=== PATIENT | female | born 1935 | race Two or more races ===

== ENCOUNTER 2021-06-22 11:25 | Inpatient (IN) | payer MEDICARE, OTHER ==
[~2021-06-22] VITALS: Ht 152.4 cm; Wt 78.1 kg
[2021-06-22 12:25] LABS: Basophils # (auto) 0 10 ^3/uL (0-0.2); Basophils % (auto) 0.3 % (0.0-2.0); Eosinophils # (auto) 0 10 ^3/uL (0-0.8); Eosinophils % (auto) 0.1 % (0.0-7.0); Hematocrit 37.8 % (36.0-46.0); Hemoglobin 12.9 g/dL (12.2-16.2); Lymphocytes # (auto) 0.6 10 ^3/uL (0.4-5.4); Lymphocytes % (auto) 7.5 % (10.0-50.0); Mean Corpuscular Hemoglobin 28.2 pg (28.0-32.0); Mean Corpuscular Hgb Conc. 34.1 g/dL (32.0-36.0); Mean Corpuscular Volume 82.6 fL (80.0-100.0); Monocytes # (auto) 1.3 10 ^3/uL (0-1.3); Monocytes % (auto) 15.2 % (0.0-12.0); Neutrophils # (auto) 6.5 10 ^3/uL (1.6-8.6); Neutrophils % (auto) 76.9 % (37.0-80.0); Red Blood Cells 4.57 10^6/uL (4.0-5.20); Red Cell Distribution Width 15.1 % (11.8-14.3); White Blood Cell 8.4 10^3/uL (4.4-10.8)
[2021-06-22 12:55] LABS: Albumin 2.9 g/dL (3.4-5.0); Calcium 8.6 mg/dL (8.5-10.1); Potassium 3.7 mmol/L (3.5-5.1)
[2021-06-22 12:58] LABS: BUN/Creatinine Ratio 30.8; Bilirubin, Total 0.9 mg/dL (0.2-1.0)
[2021-06-22] MEDS ORDERED: NITROGLYCERIN 0.4 MG SL TAB SL PRN ×2 (17:30→18:45)
[2021-06-22] MEDS ORDERED: MORPHINE SULFATE INJECTION 2 MG/ML SYRG IV PRN ×3 (17:30→18:45)
[2021-06-22] MEDS ORDERED: LORazepam 0.5 MG TAB PO PRN (18:45)
[2021-06-22] MEDS ORDERED: VANCOMYCIN PER PHARMACY 0 MG IV SCH (18:45)
[2021-06-22] MEDS ORDERED: ONDANSETRON HCL 4 MG/2 ML VIAL IV PRN (18:45)
[2021-06-22] MEDS ORDERED: DOCUSATE SOD 100 MG CAP PO PRN (18:45)
[2021-06-22] MEDS ORDERED: ALUM & MAG HYDROX-SIMETH LIQ(MAALOX) 30 ML PO PRN (18:45)
[2021-06-22] MEDS ORDERED: hydrALAZINE HCL 20 MG/ML VL IV PRN (19:15)
[2021-06-22] MEDS ORDERED: FUROSEMIDE 20 MG/2 ML VIAL IV ONE (20:30)
[2021-06-22] MEDS ORDERED: CEFTRIAXONE SODIUM 2 GM in D5W 5% 50 ML IV ONE (20:30)
[2021-06-22] MEDS ORDERED: ISOSORBIDE MONONITRATE ER 60 MG TAB PO ONE (20:30)
[2021-06-22] MEDS ORDERED: METOPROLOL SUCCINATE XL 50 MG TAB PO ONE (20:30)
[2021-06-22] MEDS ORDERED: VANCOMYCIN 1GM/250ML 250 ML IV ONE (21:30)
[2021-06-22] MEDS ORDERED: cefTRIAXone 1GM/50ML D5W 0 ML IV ONE (21:47)
[2021-06-22] MEDS ORDERED: cefTRIAXone SOD 1,000 MG VL ONE (21:48)
[2021-06-22] MEDS: SODIUM CHLORIDE 0.9% 1,000 ML IV SCH (22:00)
[2021-06-23 05:00] VITALS: BP 128/58
[2021-06-23] MEDS ORDERED: POTA10TA51 PO (05:54)
[2021-06-23] MEDS ORDERED: BUPR150T8 PO (05:54)
[2021-06-23] MEDS ORDERED: FURO1TAB33 PO (05:54)
[2021-06-23] MEDS ORDERED: CHOL20007 PO (05:54)
[2021-06-23] MEDS ORDERED: ATEN-60 PO (05:54)
[2021-06-23] MEDS ORDERED: CHLO25TA2 PO (05:54)
[2021-06-23 06:04] LABS: Basophils # (auto) 0 10 ^3/uL (0-0.2); Basophils % (auto) 0.4 % (0.0-2.0); Eosinophils # (auto) 0 10 ^3/uL (0-0.8); Eosinophils % (auto) 0.3 % (0.0-7.0); Hematocrit 35.2 % (36.0-46.0); Hemoglobin 11.9 g/dL (12.2-16.2); Lymphocytes # (auto) 0.7 10 ^3/uL (0.4-5.4); Lymphocytes % (auto) 10.7 % (10.0-50.0); Mean Corpuscular Hemoglobin 28.5 pg (28.0-32.0); Mean Corpuscular Hgb Conc. 33.9 g/dL (32.0-36.0); Monocytes # (auto) 1.1 10 ^3/uL (0-1.3); Monocytes % (auto) 15.8 % (0.0-12.0); Neutrophils # (auto) 5.1 10 ^3/uL (1.6-8.6); Neutrophils % (auto) 72.8 % (37.0-80.0); Nucleated Red Blood Cells % 0.2 %; Red Cell Distribution Width 15.3 % (11.8-14.3)
[2021-06-23] MEDS: FUROSEMIDE 20 MG/2 ML VIAL IV SCH ×2 (06:50→17:58)
[2021-06-23 08:11] LABS: Urine WBC None Seen /hpf (0 - 5)
[2021-06-23 08:45] LABS: Amphetamine Screen, Urine NEGATIVE (NEGATIVE); Barbiturate Scree,Urine NEGATIVE (NEGATIVE); Benzodiazephine Screen, Urine NEGATIVE (NEGATIVE); Cannabinoid Screen, Urine NEGATIVE (NEGATIVE); Cocaine Screen, Urine NEGATIVE (NEGATIVE); Opiate Scree,Urine NEGATIVE (NEGATIVE); Phencyclidine Screen, Urine NEGATIVE (NEGATIVE)
[2021-06-23 08:46] LABS: Urine Bacteria NONE SEEN /hpf (None Seen); Urine Blood Negative /uL (Negative); Urine Mucus FEW (None Seen); Urine Specific Gravity 1.017 (1.001-1.035)
[2021-06-23 09:00] VITALS: BP 100/43
[2021-06-23 09:21] LABS: Alcohol, Urine < 3.0 mg/dL (0-10)
[2021-06-23] MEDS: SODIUM CHLORIDE 0.9% 1,000 ML IV SCH (11:25)
[2021-06-23 12:58] VITALS: BP 125/70
[2021-06-23 17:08] VITALS: BP 118/54
[2021-06-23] MEDS: VANCOMYCIN 750mg/250ml 250 ML IV SCH (21:16)
[2021-06-23] MEDS: ACETAMINOPHEN 325 MG TAB PO PRN (21:17)
[2021-06-23 22:00] VITALS: BP 121/67
[2021-06-23] MEDS ORDERED: cefTRIAXone 1GM/50ML D5W 0 ML IV ONE (22:15)
[2021-06-23] MEDS: CEFTRIAXONE SODIUM 2 GM in D5W 5% 50 ML IV SCH (22:35)
[2021-06-23] MEDS: ISOSORBIDE MONONITRATE ER 60 MG TAB PO SCH (22:36)
[2021-06-23] MEDS: METOPROLOL SUCCINATE XL 50 MG TAB PO SCH (22:37)
[2021-06-24] MEDS: SODIUM CHLORIDE 0.9% 1,000 ML IV SCH ×2 (00:23→21:03)
[2021-06-24 05:00] VITALS: BP 103/55
[2021-06-24] MEDS: FUROSEMIDE 20 MG/2 ML VIAL IV SCH ×2 (05:42→18:14)
[2021-06-24 09:00] VITALS: BP 131/54
[2021-06-24 13:00] VITALS: BP 132/65
[2021-06-24] MEDS ORDERED: LIDOCAINE 2%HCL (LOCAL ANESTH.) INJ 20ML MDV ONE (15:04)
[2021-06-24 17:00] VITALS: BP 148/53
[2021-06-24] MEDS: ACETAMINOPHEN 325 MG TAB PO PRN (18:14)
[2021-06-24] MEDS: VANCOMYCIN 750mg/250ml 250 ML IV SCH (20:54)
[2021-06-24 22:00] VITALS: BP 160/80
[2021-06-24] MEDS: CEFTRIAXONE SODIUM 2 GM in D5W 5% 50 ML IV SCH (22:16)
[2021-06-24] MEDS: ISOSORBIDE MONONITRATE ER 60 MG TAB PO SCH (22:16)
[2021-06-24] MEDS: METOPROLOL SUCCINATE XL 50 MG TAB PO SCH (22:17)
[2021-06-25 05:00] VITALS: BP 125/55
[2021-06-25] MEDS: FUROSEMIDE 20 MG/2 ML VIAL IV SCH (05:54)
[2021-06-25 09:00] VITALS: BP 135/73
[2021-06-25 13:00] VITALS: BP 138/78
[2021-06-25 17:00] VITALS: BP 141/83
[2021-06-25] MEDS: buPROPion HCL 75 MG TAB PO SCH (18:10)
[2021-06-25 21:38] VITALS: BP 139/96
[2021-06-25] MEDS: VANCOMYCIN 750mg/250ml 250 ML IV SCH (21:53)
[2021-06-25] MEDS: ISOSORBIDE MONONITRATE ER 60 MG TAB PO SCH (23:10)
[2021-06-25] MEDS: METOPROLOL SUCCINATE XL 50 MG TAB PO SCH (23:11)
[2021-06-26] MEDS: buPROPion HCL 75 MG TAB PO SCH ×2 (05:13→18:52)
[2021-06-26 05:30] VITALS: BP 132/66
[2021-06-26 05:36] LABS: Basophils # (auto) 0 10 ^3/uL (0-0.2); Basophils % (auto) 0.6 % (0.0-2.0); Eosinophils # (auto) 0.1 10 ^3/uL (0-0.8); Eosinophils % (auto) 2.1 % (0.0-7.0); Hematocrit 33.4 % (36.0-46.0); Lymphocytes # (auto) 0.9 10 ^3/uL (0.4-5.4); Lymphocytes % (auto) 19.3 % (10.0-50.0); Mean Corpuscular Hemoglobin 27.5 pg (28.0-32.0); Mean Corpuscular Hgb Conc. 32.8 g/dL (32.0-36.0); Mean Corpuscular Volume 83.7 fL (80.0-100.0); Monocytes # (auto) 0.7 10 ^3/uL (0-1.3); Monocytes % (auto) 15.5 % (0.0-12.0); Neutrophils # (auto) 2.9 10 ^3/uL (1.6-8.6); Neutrophils % (auto) 62.5 % (37.0-80.0); Nucleated Red Blood Cells % 0.1 %; Red Blood Cells 3.99 10^6/uL (4.0-5.20); Red Cell Distribution Width 14.5 % (11.8-14.3); White Blood Cell 4.7 10^3/uL (4.4-10.8)
[2021-06-26 06:01] LABS: INR 1.05 (0.9-1.15); Partial Thromboplastin Time 31.7 sec (23.6-33.0)
[2021-06-26 06:05] LABS: Potassium 3.8 mmol/L (3.5-5.1)
[2021-06-26 09:00] VITALS: BP 131/68
[2021-06-26] MEDS ORDERED: CLINDAMYCIN 600MG IV 50 ML IV ONE (10:35)
[2021-06-26] MEDS ORDERED: fentaNYL CITRATE 100 MCG/2 ML VL ONE (10:42)
[2021-06-26] MEDS ORDERED: LIDOCAINE W/ EPINEPHRINE 2% INJ 20ML VIAL ONE ×2 (10:53→10:55)
[2021-06-26] MEDS ORDERED: BUPIVACAINE HCL 50 ML ONE (10:54)
[2021-06-26] MEDS ORDERED: PROPOFOL 10 MG/ML 20 ML IV ONE (11:34)
[2021-06-26] MEDS ORDERED: ePHEDrine SULFATE 50 MG/ML AMP ONE (11:35)
[2021-06-26] MEDS: VANCOMYCIN 750mg/250ml 250 ML IV SCH ×2 (12:19→22:40)
[2021-06-26 13:00] VITALS: BP 123/63
[2021-06-26 17:00] VITALS: BP 139/80
[2021-06-26] MEDS: HYDROcodone-ACET 5/325MG TAB PO PRN (17:34)
[2021-06-26 22:00] VITALS: BP 156/88
[2021-06-26] MEDS: ISOSORBIDE MONONITRATE ER 60 MG TAB PO SCH (22:41)
[2021-06-26] MEDS: METOPROLOL SUCCINATE XL 50 MG TAB PO SCH (22:42)
[2021-06-27] MEDS: HYDROcodone-ACET 5/325MG TAB PO PRN (00:15)
[2021-06-27 05:00] VITALS: BP 111/68
[2021-06-27] MEDS: buPROPion HCL 75 MG TAB PO SCH ×2 (07:29→19:35)
[2021-06-27] MEDS: ACETAMINOPHEN 325 MG TAB PO PRN ×2 (07:30→19:01)
[2021-06-27] MEDS: VANCOMYCIN 750mg/250ml 250 ML IV SCH ×2 (09:18→21:38)
[2021-06-27] MEDS: PANTOPRAZOLE 40 MG TAB PO SCH (09:18)
[2021-06-27] MEDS: ENOXAPARIN SOD 40 MG/0.4 ML SYRINGE SC SCH (09:19)
[2021-06-27 09:27] VITALS: BP 111/59
[2021-06-27] MEDS: CEFTRIAXONE SODIUM 2 GM in D5W 5% 50 ML IV SCH (12:08)
[2021-06-27 16:00] VITALS: BP 146/81
[2021-06-27 22:00] VITALS: BP 117/70
[2021-06-27] MEDS: ISOSORBIDE MONONITRATE ER 60 MG TAB PO SCH (23:04)
[2021-06-27] MEDS: METOPROLOL SUCCINATE XL 50 MG TAB PO SCH (23:05)
[2021-06-28 05:00] VITALS: BP 135/79
[2021-06-28] MEDS: buPROPion HCL 75 MG TAB PO SCH ×2 (06:52→18:59)
[2021-06-28 08:00] VITALS: BP 131/65
[2021-06-28] MEDS: VANCOMYCIN 750mg/250ml 250 ML IV SCH ×2 (09:29→21:12)
[2021-06-28] MEDS: CEFTRIAXONE SODIUM 2 GM in D5W 5% 50 ML IV SCH (09:29)
[2021-06-28] MEDS: PANTOPRAZOLE 40 MG TAB PO SCH (09:30)
[2021-06-28] MEDS: ENOXAPARIN SOD 40 MG/0.4 ML SYRINGE SC SCH (09:30)
[2021-06-28 12:00] VITALS: BP 152/76
[2021-06-28 16:00] VITALS: BP 143/89
[2021-06-28 22:00] VITALS: BP 153/85
[2021-06-28] MEDS: ISOSORBIDE MONONITRATE ER 60 MG TAB PO SCH (22:23)
[2021-06-28] MEDS: METOPROLOL SUCCINATE XL 50 MG TAB PO SCH (22:24)
[2021-06-29 06:00] VITALS: BP 110/57
[2021-06-29] MEDS: buPROPion HCL 75 MG TAB PO SCH ×2 (06:46→17:40)
[2021-06-29] MEDS: VANCOMYCIN 750mg/250ml 250 ML IV SCH ×2 (10:09→20:54)
[2021-06-29] MEDS: ENOXAPARIN SOD 40 MG/0.4 ML SYRINGE SC SCH (10:10)
[2021-06-29] MEDS: PANTOPRAZOLE 40 MG TAB PO SCH (10:10)
[2021-06-29] MEDS: CEFTRIAXONE SODIUM 2 GM in D5W 5% 50 ML IV SCH (10:10)
[2021-06-29 10:25] VITALS: BP 147/86
[2021-06-29 13:00] VITALS: BP 139/81
[2021-06-29] MEDS: HYDROcodone-ACET 5/325MG TAB PO PRN (14:19)
[2021-06-29 17:06] VITALS: BP 109/65
[2021-06-29 22:00] VITALS: BP 124/74
[2021-06-29] MEDS: ISOSORBIDE MONONITRATE ER 60 MG TAB PO SCH (22:00)
[2021-06-29] MEDS: METOPROLOL SUCCINATE XL 50 MG TAB PO SCH (22:01)
[2021-06-30 05:00] VITALS: BP 119/50
[2021-06-30] MEDS: buPROPion HCL 75 MG TAB PO SCH ×2 (05:57→18:46)
[2021-06-30 09:00] VITALS: BP 142/67
[2021-06-30] MEDS: VANCOMYCIN 750mg/250ml 250 ML IV SCH (10:59)
[2021-06-30] MEDS: CEFTRIAXONE SODIUM 2 GM in D5W 5% 50 ML IV SCH (10:59)
[2021-06-30] MEDS: PANTOPRAZOLE 40 MG TAB PO SCH (11:00)
[2021-06-30] MEDS: ENOXAPARIN SOD 40 MG/0.4 ML SYRINGE SC SCH (11:00)
[2021-06-30 13:00] VITALS: BP 143/62
[2021-06-30 16:57] VITALS: BP 141/94
== END 2021-06-30 20:39 | disposition home health service (06) | DRG 507 ==
LOC: ER 11:25 → EDBD 11:25 → TELE 17:19 → TELE-WESTW 06-23 03:05
PROVIDERS: ADMIT Hospitalist; ATTEND Internal Medicine Nephrology
PROC: 0R9J3ZZ Drainage of Right Shoulder Joint, Percutaneous Approach (ICD-10-PCS; 2021-06-24)
PROC: 0R9 Upper Joints, Drainage (ICD-10-PCS; principal; 2021-06-26 10:40)
PROC: 05HF33Z Insertion of Infusion Device into Left Cephalic Vein, Percutaneous Approach (ICD-10-PCS; 2021-06-28)
PROC: B54NZZA Ultrasonography of Left Upper Extremity Veins, Guidance (ICD-10-PCS; 2021-06-28)
DX: M00.9 Pyogenic arthritis, unspecified (principal); E43 Unspecified severe protein-calorie malnutrition; M75.101 Unspecified rotator cuff tear or rupture of right shoulder, not specified as traumatic; S40.011A Contusion of right shoulder, initial encounter; M19.011 Primary osteoarthritis, right shoulder; M06.9 Rheumatoid arthritis, unspecified; E78.5 Hyperlipidemia, unspecified; E66.01 Morbid (severe) obesity due to excess calories; K44.9 Diaphragmatic hernia without obstruction or gangrene; I10 Essential (primary) hypertension; Z20.822 Contact with and (suspected) exposure to COVID-19; E11.9 Type 2 diabetes mellitus without complications; Z68.31 Body mass index [BMI] 31.0-31.9, adult; Z86.711 Personal history of pulmonary embolism; Z90.710 Acquired absence of both cervix and uterus; Z88.0 Allergy status to penicillin; Z90.49 Acquired absence of other specified parts of digestive tract; Z91.81 History of falling; I50.9 Heart failure, unspecified; I11.0 Hypertensive heart disease with heart failure
CPT/HCPCS: 36415; 71045; 73030; 73221; 74176; 76942; 80048; 80053; 80202; 80307; 81001; 82565; 83036; 83880; 84484; 85025; 85610; 85652; 85730; 86141; 86850; 86900; 86901; 87040; 87070; 87075; 87086; 87205; 87426; 89051; 93005; 96365; 96375; 97110; 97116; 97530; G0378; J0696; J2704; J3490; J7060

== ENCOUNTER 2023-05-15 11:06 | Inpatient (IN) | payer MEDICARE, OTHER ==
[~2023-05-15] VITALS: Ht 154.9 cm; Wt 74.2 kg
[~2023-05-15 11:06] MED LIST: ATEN-60 PO; BUPR150T8 PO; CHLO25TA2 PO; CHOL20007 PO; FURO1TAB33 PO; POTA10TA51 PO
[2023-05-15 11:53] LABS: Basophils # (auto) 0 10 ^3/uL (0-0.2); Basophils % (auto) 0.8 % (0.0-2.0); Eosinophils # (auto) 0 10 ^3/uL (0-0.8); Eosinophils % (auto) 0.9 % (0.0-7.0); Hematocrit 36.3 % (36.0-46.0); Hemoglobin 12.2 g/dL (12.2-16.2); Lymphocytes # (auto) 0.7 10 ^3/uL (0.4-5.4); Lymphocytes % (auto) 16.1 % (10.0-50.0); Mean Corpuscular Hemoglobin 29.1 pg (28.0-32.0); Mean Corpuscular Hgb Conc. 33.6 g/dL (32.0-36.0); Mean Corpuscular Volume 86.5 fL (80.0-100.0); Monocytes # (auto) 0.5 10 ^3/uL (0-1.3); Monocytes % (auto) 10.8 % (0.0-12.0); Neutrophils # (auto) 3.3 10 ^3/uL (1.6-8.6); Neutrophils % (auto) 71.4 % (37.0-80.0); Nucleated Red Blood Cells % 0.1 %; Red Cell Distribution Width 14.6 % (11.8-14.3); White Blood Cell 4.6 10^3/uL (4.4-10.8)
[2023-05-15 12:29] LABS: Alanine Aminotransferase 17 U/L (7-40); Albumin 3.6 g/dL (3.2-4.8); Alkaline Phosphatase 114 U/L (46-116); Anion Gap 4 (5-15); Aspartate Aminotransferase 18 U/L (13-40); BUN/Creatinine Ratio 21.6 (10.0-20.0); Bilirubin, Total 0.4 mg/dL (0.2-1.0); Blood Urea Nitrogen 22 mg/dL (9-23); Calcium 9.5 mg/dL (8.7-10.4); Carbon Dioxide 32 mmol/L (20-30); Chloride 103 mmol/L (98-107); Glucose 93 mg/dL (74-106); Potassium 3.5 mmol/L (3.5-5.1); Sodium 139 mmol/L (136-145); Total Protein 7.2 g/dL (5.7-8.2)
[2023-05-15] MEDS ORDERED: VANCOMYCIN 1GM/250ML 250 ML IV ONE (14:30)
[2023-05-15] MEDS ORDERED: TETANUS-DIPTH-ACEL PERTUSSIS 0.5ML SYR Tdap IM ONE (14:30)
[2023-05-15] MEDS ORDERED: DEXTROSE (50%) 50ML SYRG IV PRN (15:15)
[2023-05-15] MEDS ORDERED: ACETAMINOPHEN 325 MG TAB PO PRN (15:15)
[2023-05-15] MEDS ORDERED: FUROSEMIDE 20 MG/2 ML VIAL IV ONE (15:15)
[2023-05-15] MEDS ORDERED: ALBUTEROL SULF 2.5 MG/0.5ML(0.5%) NEB SOLN NEB PRN (15:30)
[2023-05-15 15:39] VITALS: BP 115/58; PULSE 77; RESP 18; TEMP 98.7; O2SAT 95
[2023-05-15] MEDS: InsuLIN REG 1unit/0.01ml Soln (100units/ml) SC SCH ×2 (17:00→22:00)
[2023-05-15 18:00] VITALS: PULSE 73; RESP 14; O2SAT 96
[2023-05-15] MEDS: ACCU-CHEK COMFORT CURVE STRIP VI SCH ×2 (18:11→22:09)
[2023-05-15] MEDS ORDERED: ONDANSETRON ODT 4 MG TAB PO PRN (22:15)
[2023-05-16] VITALS (8 sets, daily range): BP systolic 94–105; BP diastolic 47–61; PULSE 81–90; RESP 17–19; TEMP 97.5–98.3; O2SAT 93–99
[2023-05-16 06:50] LABS: Basophils # (auto) 0 10 ^3/uL (0-0.2); Basophils % (auto) 0.3 % (0.0-2.0); Eosinophils # (auto) 0 10 ^3/uL (0-0.8); Eosinophils % (auto) 0.6 % (0.0-7.0); Hematocrit 33.5 % (36.0-46.0); Hemoglobin 11.3 g/dL (12.2-16.2); Lymphocytes # (auto) 0.1 10 ^3/uL (0.4-5.4); Lymphocytes % (auto) 1.6 % (10.0-50.0); Mean Corpuscular Hemoglobin 29.3 pg (28.0-32.0); Mean Corpuscular Hgb Conc. 33.8 g/dL (32.0-36.0); Mean Corpuscular Volume 86.6 fL (80.0-100.0); Monocytes # (auto) 0.7 10 ^3/uL (0-1.3); Monocytes % (auto) 8.1 % (0.0-12.0); Neutrophils # (auto) 7.6 10 ^3/uL (1.6-8.6); Neutrophils % (auto) 89.4 % (37.0-80.0); Red Blood Cells 3.86 10^6/uL (4.0-5.20); Red Cell Distribution Width 14.5 % (11.8-14.3); White Blood Cell 8.5 10^3/uL (4.4-10.8)
[2023-05-16] MEDS: InsuLIN REG 1unit/0.01ml Soln (100units/ml) SC SCH ×4 (07:00→22:00)
[2023-05-16 07:02] LABS: Alanine Aminotransferase 17 U/L (7-40); Albumin 3.2 g/dL (3.2-4.8); Alkaline Phosphatase 98 U/L (46-116); Anion Gap 3 (5-15); Aspartate Aminotransferase 17 U/L (13-40); Blood Urea Nitrogen 22 mg/dL (9-23); Calcium 9.1 mg/dL (8.7-10.4); Carbon Dioxide 33 mmol/L (20-30); Chloride 103 mmol/L (98-107); Glucose 117 mg/dL (74-106); Potassium 3.9 mmol/L (3.5-5.1); Sodium 139 mmol/L (136-145); Total Protein 6.2 g/dL (5.7-8.2)
[2023-05-16] MEDS: ACCU-CHEK COMFORT CURVE STRIP VI SCH ×4 (07:05→22:20)
[2023-05-16 07:09] LABS: Bilirubin, Total 0.4 mg/dL (0.2-1.0)
[2023-05-16 07:12] LABS: INR 1.04 (0.9-1.15); Prothrombin Time 10.9 sec (9.3-11.8)
[2023-05-16] MEDS: ENOXAPARIN SOD 40 MG/0.4 ML SYRINGE SC SCH (10:58)
[2023-05-16] MEDS: CHOLECALCIFEROL (VITD3) 2,000 UNIT CAP/TAB PO SCH (10:59)
[2023-05-16] MEDS: FUROSEMIDE 20 MG/2 ML VIAL IV SCH (11:15)
[2023-05-16] MEDS: ATENOLOL 25 MG TAB PO SCH (11:16)
[2023-05-16] MEDS ORDERED: FLUT110A PO (16:50)
[2023-05-16] MEDS ORDERED: BUPR-239 PO (16:50)
[2023-05-16] MEDS ORDERED: BUPR100T16 PO (16:50)
[2023-05-16] MEDS ORDERED: ATEN25TA PO (16:50)
[2023-05-16] MEDS ORDERED: FURO40TA4 PO (16:50)
[2023-05-17] VITALS (8 sets, daily range): BP systolic 95–109; BP diastolic 50–70; PULSE 63–81; RESP 16–20; TEMP 97.3–98.3; O2SAT 96–99
[2023-05-17] MEDS: InsuLIN REG 1unit/0.01ml Soln (100units/ml) SC SCH ×4 (06:06→22:00)
[2023-05-17] MEDS: ACCU-CHEK COMFORT CURVE STRIP VI SCH ×4 (06:07→22:00)
[2023-05-17] MEDS: FUROSEMIDE 20 MG/2 ML VIAL IV SCH (10:11)
[2023-05-17] MEDS: CHOLECALCIFEROL (VITD3) 2,000 UNIT CAP/TAB PO SCH (10:12)
[2023-05-17] MEDS: ATENOLOL 25 MG TAB PO SCH (10:12)
[2023-05-17] MEDS: ENOXAPARIN SOD 40 MG/0.4 ML SYRINGE SC SCH (10:14)
[2023-05-18] VITALS (7 sets, daily range): BP systolic 99–106; BP diastolic 44–48; PULSE 63–75; RESP 16–21; TEMP 36.9; O2SAT 93–99
[2023-05-18] MEDS: InsuLIN REG 1unit/0.01ml Soln (100units/ml) SC SCH ×2 (05:29→11:30)
[2023-05-18] MEDS: ACCU-CHEK COMFORT CURVE STRIP VI SCH ×2 (05:31→11:30)
[2023-05-18] MEDS: FUROSEMIDE 20 MG/2 ML VIAL IV SCH (10:00)
[2023-05-18] MEDS: ATENOLOL 25 MG TAB PO SCH (10:09)
[2023-05-18] MEDS: CHOLECALCIFEROL (VITD3) 2,000 UNIT CAP/TAB PO SCH (10:09)
[2023-05-18] MEDS: ENOXAPARIN SOD 40 MG/0.4 ML SYRINGE SC SCH (10:10)
[2023-05-18] MEDS ORDERED: CLIN300C70 PO (11:35)
== END 2023-05-18 18:44 | disposition home or self-care (01) | DRG 603 ==
LOC: ER 11:06 → EDBD 11:06 → OVERFLOW 15:08 → CENTRAL 05-16 11:38
PROVIDERS: ADMIT Nurse Practitioner Family; ATTEND Internal Medicine
DX: L03.116 Cellulitis of left lower limb (principal); J96.10 Chronic respiratory failure, unspecified whether with hypoxia or hypercapnia; I50.32 Chronic diastolic (congestive) heart failure; S80.12XA Contusion of left lower leg, initial encounter; I11.0 Hypertensive heart disease with heart failure; J44.9 Chronic obstructive pulmonary disease, unspecified; M81.0 Age-related osteoporosis without current pathological fracture; E11.9 Type 2 diabetes mellitus without complications; X58.XXXA Exposure to other specified factors, initial encounter; Z88.0 Allergy status to penicillin; Z86.718 Personal history of other venous thrombosis and embolism; Z99.81 Dependence on supplemental oxygen; Z90.710 Acquired absence of both cervix and uterus; Z86.711 Personal history of pulmonary embolism; Z90.49 Acquired absence of other specified parts of digestive tract; Y93.89 Activity, other specified; Y92.89 Other specified places as the place of occurrence of the external cause; Y99.8 Other external cause status
CPT/HCPCS: 36415; 73590; 80053; 82962; 83036; 83880; 85025; 85610; 87040; 90471; 90715; 93306; 93970; 96365; 96375; 97110; 97116; 97163; 97530; G0378; Q0162

== ENCOUNTER 2023-07-28 00:23 | Inpatient (IN) | payer MEDICARE, OTHER ==
[2023-07-28] VITALS (7 sets, daily range): BP systolic 109–118; BP diastolic 55–62; PULSE 57–83; RESP 17–20; TEMP 97.5–98.3; O2SAT 96–98
[~2023-07-28] VITALS: Ht 157.5 cm; Wt 67.7 kg
[~2023-07-28 00:23] MED LIST changes: +ATEN25TA PO; +BUPR-239 PO; +BUPR100T16 PO; +CLIN300C70 PO; +FLUT110A PO; +FURO40TA4 PO
[2023-07-28 01:29] LABS: Basophils # (auto) 0 10 ^3/uL (0-0.2); Basophils % (auto) 0.8 % (0.0-2.0); Eosinophils # (auto) 0.1 10 ^3/uL (0-0.8); Eosinophils % (auto) 1.9 % (0.0-7.0); Hematocrit 37.3 % (36.0-46.0); Hemoglobin 12.2 g/dL (12.2-16.2); Lymphocytes # (auto) 0.8 10 ^3/uL (0.4-5.4); Lymphocytes % (auto) 15.4 % (10.0-50.0); Mean Corpuscular Hemoglobin 28.4 pg (28.0-32.0); Mean Corpuscular Hgb Conc. 32.6 g/dL (32.0-36.0); Mean Corpuscular Volume 86.9 fL (80.0-100.0); Monocytes # (auto) 0.4 10 ^3/uL (0-1.3); Monocytes % (auto) 7.9 % (0.0-12.0); Neutrophils # (auto) 4.1 10 ^3/uL (1.6-8.6); Nucleated Red Blood Cells % 0.2 %; Red Blood Cells 4.29 10^6/uL (4.0-5.20); Red Cell Distribution Width 15.4 % (11.8-14.3); White Blood Cell 5.5 10^3/uL (4.4-10.8)
[2023-07-28 01:44] LABS: INR 1.23 (0.9-1.15); Partial Thromboplastin Time 33.4 SEC (24.5-34.5); Prothrombin Time 12.7 sec (9.3-11.8)
[2023-07-28 01:47] LABS: Alanine Aminotransferase 28 U/L (7-40); Albumin 3.3 g/dL (3.2-4.8); Alkaline Phosphatase 113 U/L (46-116); Anion Gap 6 (5-15); Aspartate Aminotransferase 31 U/L (13-40); BUN/Creatinine Ratio 27.3 (10.0-20.0); Blood Urea Nitrogen 35 mg/dL (9-23); Calcium 9.2 mg/dL (8.7-10.4); Carbon Dioxide 28 mmol/L (20-30); Chloride 107 mmol/L (98-107); Glucose 72 mg/dL (74-106); Magnesium 1.8 mg/dL (1.6-2.6); Potassium 3.6 mmol/L (3.5-5.1); Sodium 141 mmol/L (136-145); Total Protein 6.6 g/dL (5.7-8.2)
[2023-07-28 01:48] LABS: Bilirubin, Total 0.9 mg/dL (0.2-1.0)
[2023-07-28 01:56] LABS: Platelet Estimate Decreased
[2023-07-28 13:20] LABS: Urine Bacteria NONE SEEN /hpf (None Seen); Urine Blood Negative /uL (Negative); Urine Clarity Clear (Clear); Urine Color Yellow (Yellow); Urine Hyaline Cast FEW /lpf (0 - 2); Urine Protein, UAD TRACE (Negative); Urine Specific Gravity 1.021 (1.001-1.035); Urine Urobilinogen Normal (Negative); Urine WBC 10 /hpf (0 - 5); Urine pH 5.5 (5.0-8.0)
[2023-07-28] MEDS ORDERED: ACETAMINOPHEN 325 MG TAB PO PRN (13:30)
[2023-07-28] MEDS ORDERED: ONDANSETRON HCL 4 MG/2 ML VIAL IV PRN (13:30)
[2023-07-28] MEDS ORDERED: HYDROcodone-ACET 5/325MG TAB PO PRN (13:30)
[2023-07-28] MEDS ORDERED: MORPHINE SULFATE INJ 2 MG/ml SYRG IV PRN ×2 (13:30)
[2023-07-28] MEDS ORDERED: NITROGLYCERIN 0.4 MG SL TAB SL PRN (13:30)
[2023-07-28] MEDS ORDERED: HALOPERIDOL LACTATE 5 MG/ML INJ VIAL IM PRN (15:00)
[2023-07-28] MEDS: SERTRALINE HCL 50 MG TAB PO SCH (16:38)
[2023-07-28] MEDS: FUROSEMIDE 20 MG/2 ML VIAL IV SCH (16:39)
[2023-07-28] MEDS: ENOXAPARIN SOD 30 MG/0.3 ML SYRINGE SC SCH (16:39)
[2023-07-28] MEDS ORDERED: levoFLOXacin 750MG 150 ML IV ONE (17:00)
[2023-07-28] MEDS: OXYBUTYNIN CHL 5 MG TAB PO SCH ×2 (18:07→22:27)
[2023-07-28] MEDS ORDERED: CLINDAMYCIN HCL 150 MG CAP PO SCH (22:00)
[2023-07-28] MEDS: MELATONIN 5 MG TAB PO SCH (22:27)
[2023-07-29] VITALS (7 sets, daily range): BP systolic 96–129; BP diastolic 46–64; PULSE 51–71; RESP 15–22; TEMP 97.6–98.9; O2SAT 95–100
[2023-07-29 07:18] LABS: Basophils # (auto) 0 10 ^3/uL (0-0.2); Basophils % (auto) 1.1 % (0.0-2.0); Eosinophils # (auto) 0.1 10 ^3/uL (0-0.8); Eosinophils % (auto) 2.8 % (0.0-7.0); Hematocrit 34.1 % (36.0-46.0); Hemoglobin 11.1 g/dL (12.2-16.2); Lymphocytes # (auto) 0.8 10 ^3/uL (0.4-5.4); Lymphocytes % (auto) 20.3 % (10.0-50.0); Mean Corpuscular Hgb Conc. 32.5 g/dL (32.0-36.0); Mean Corpuscular Volume 86.1 fL (80.0-100.0); Monocytes # (auto) 0.5 10 ^3/uL (0-1.3); Neutrophils # (auto) 2.5 10 ^3/uL (1.6-8.6); Neutrophils % (auto) 63.8 % (37.0-80.0); Nucleated Red Blood Cells % 0.2 %; Red Blood Cells 3.96 10^6/uL (4.0-5.20); Red Cell Distribution Width 14.8 % (11.8-14.3); White Blood Cell 3.9 10^3/uL (4.4-10.8)
[2023-07-29 07:48] LABS: Chloride 104 mmol/L (98-107); Potassium 3.5 mmol/L (3.5-5.1); Sodium 143 mmol/L (136-145)
[2023-07-29 07:49] LABS: Anion Gap 7 (5-15); Carbon Dioxide 32 mmol/L (20-30)
[2023-07-29 07:54] LABS: BUN/Creatinine Ratio 27.2 (10.0-20.0); Blood Urea Nitrogen 34 mg/dL (9-23); Glucose 69 mg/dL (74-106)
[2023-07-29] MEDS: OXYBUTYNIN CHL 5 MG TAB PO SCH ×2 (10:00→21:24)
[2023-07-29] MEDS: ENOXAPARIN SOD 30 MG/0.3 ML SYRINGE SC SCH (10:00)
[2023-07-29] MEDS: SERTRALINE HCL 50 MG TAB PO SCH (10:00)
[2023-07-29] MEDS ORDERED: levoFLOXacin 750MG 150 ML IV SCH (10:00)
[2023-07-29] MEDS: FUROSEMIDE 20 MG/2 ML VIAL IV SCH (10:37)
[2023-07-29] MEDS: MELATONIN 5 MG TAB PO SCH (21:22)
[2023-07-30 05:00] VITALS: BP 109/51; PULSE 62; RESP 17; TEMP 98.7; O2SAT 93
[2023-07-30 09:00] VITALS: BP 112/68; PULSE 71; RESP 17; TEMP 97.3; O2SAT 96
[2023-07-30] MEDS: OXYBUTYNIN CHL 5 MG TAB PO SCH (09:19)
[2023-07-30] MEDS: SERTRALINE HCL 50 MG TAB PO SCH (09:19)
[2023-07-30] MEDS: ENOXAPARIN SOD 30 MG/0.3 ML SYRINGE SC SCH (09:20)
[2023-07-30] MEDS: FUROSEMIDE 20 MG/2 ML VIAL IV SCH (09:22)
[2023-07-30] MEDS ORDERED: CIPR250T3 PO (12:27)
[2023-07-30 13:00] VITALS: BP 108/55; PULSE 65; RESP 18; TEMP 97.2; O2SAT 95
[2023-07-30] MEDS ORDERED: Ensure HIGH Protein Chocolate 8oz Bottle PO SCH (18:00)
== END 2023-07-30 17:29 | disposition home health service (06) | DRG 291 ==
LOC: EDBD 00:23 → ER 00:23 → EDSEX 00:23 → OVERFLOW 13:20 → EAST 16:08
PROVIDERS: ADMIT Internal Medicine; ATTEND Internal Medicine
DX: I13.0 Hypertensive heart and chronic kidney disease with heart failure and stage 1 through stage 4 chronic kidney disease, or unspecified chronic kidney disease (principal); I50.33 Acute on chronic diastolic (congestive) heart failure; N17.0 Acute kidney failure with tubular necrosis; D61.818 Other pancytopenia; N39.0 Urinary tract infection, site not specified; E11.22 Type 2 diabetes mellitus with diabetic chronic kidney disease; E55.9 Vitamin D deficiency, unspecified; F32.A Depression, unspecified; F41.0 Panic disorder [episodic paroxysmal anxiety]; I27.20 Pulmonary hypertension, unspecified; J44.9 Chronic obstructive pulmonary disease, unspecified; R32 Unspecified urinary incontinence; F03.90 Unspecified dementia, unspecified severity, without behavioral disturbance, psychotic disturbance, mood disturbance, and anxiety; S81.802A Unspecified open wound, left lower leg, initial encounter; X58.XXXA Exposure to other specified factors, initial encounter; K44.9 Diaphragmatic hernia without obstruction or gangrene; N18.30 Chronic kidney disease, stage 3 unspecified; Z82.49 Family history of ischemic heart disease and other diseases of the circulatory system; Z86.711 Personal history of pulmonary embolism; Z88.0 Allergy status to penicillin; Z90.710 Acquired absence of both cervix and uterus; Y93.89 Activity, other specified; Y92.89 Other specified places as the place of occurrence of the external cause; Y99.8 Other external cause status
CPT/HCPCS: 36415; 71045; 71250; 73610; 73630; 80048; 80053; 81001; 82306; 82607; 83036; 83735; 83880; 84443; 84484; 85025; 85610; 85730; 87081; 87086; 93971; 96365; G0378; J1956

== ENCOUNTER 2024-06-24 22:28 | Emergency (ER) | payer MEDICARE ==
[~2024-06-24] VITALS: Ht 154.9 cm; Wt 40.9 kg
[~2024-06-24 22:28] MED LIST changes: +CIPR250T3 PO; +CLIN1CAP70 PO; -CLIN300C70 PO; +POTA-36 PO; -POTA10TA51 PO
--- NOTE | 2024-06-24 23:19 | ED.PDOC ---
History of Present Illness HPI Comments 89 y/o F, with a Hx of arthritis, CHF, CKF III, COPD, DM, HTN, PE, UTI's, thrombocytopenia, and current hiatal hernia, is BIBA for c/o constipation for 3 days. Per EMS report, patient is a bed-ridden resident of [facility] and reports being unable to defecate for the past few days. Vitals were stated to have been within normal limits on scene and en route. At time of evaluation, patient comments on Prune juice use, today, with no relief of constipation in addition to admitting to adult diaper use. Patient comments on no recent stress, injuries, sick contact, travel, spoiled food intake, or substance use/exposure. Patient denies having any abdominal pain, nausea, vomiting, urinary symptoms, fever, chills, or other associated symptoms or modifiers at this time. Chief Complaint: Constipation Time Seen by MD: 22:45 Primary Care Provider: MI Reviewed Notes: Nurses Notes, [employer] Consultant Notes, Medications, Allergies Allergies: Coded Allergies: Penicillins (Verified Allergy, Unknown, 06/22/21) Prednisone (Verified Allergy, Unknown, 06/24/24) Home Meds Active Scripts Ciprofloxacin Hcl (Ciprofloxacin Hcl) 250 Mg Tab, 1 TAB PO BID for 3 Days, #6 TAB Prov:MAGALY ISLAS MD 07/30/23 Clindamycin Hcl (Clindamycin Hcl) 300 Mg Cap, 1 CAP PO TID, #21 CAP Prov:FOZIA SMITH MD 05/18/23 Reported Medications Bupropion Hcl (Bupropion Hcl Sr) 200 Mg Tab, 1 TAB PO BID 05/16/23 Furosemide (Furosemide) 40 Mg Tab, 1 TAB PO BID 05/16/23 Fluticasone Propionate (FLOVENT HFA 110Mcg INH) 110 Mcg Ih, 2 PUFF PO 05/16/23 Atenolol (Atenolol) 25 Mg Tab, 1 TAB PO DAILY 05/16/23 Bupropion Hcl (Bupropion Hcl Er) 100 Mg Tab, 1 TAB PO QAM 05/16/23 Potassium Chloride (POTASSIUM CHLORIDE CR) 10 Meq Tb, 1 TAB PO 2XW, #30 TAB 5 Refills 06/23/21 Furosemide (Lasix) 20 Mg Tb, 1 TAB PO 2XW, #90 TAB 3 Refills 06/23/21 Bupropion Hcl (Wellbutrin Sr) 150 Mg Tab, 100 MG PO, TAB 06/23/21 Chlorthalidone (Chlorthalidone) 25 Mg Tab, 25 MG PO, TAB 06/23/21 Cholecalciferol (VITAMIN D3) 2,000 Unit Tab, 1 TAB PO DAILY, #30 TAB 5 Refills 06/23/21 Atenolol (Atenolol) 25 Mg Tab, 25 MG PO DAILY for 30 Days, MG 06/23/21 Information Source: Patient, Emergency Med Personnel Mode of Arrival: EMS Severity: Moderate Timing: Days Duration: Since onset Prehospital treatment: 12 Lead EKG, Power Superintendent Past Medical History PAST MEDICAL HISTORY: Anxiety, Arthritis, CHF, CKF (stage III), COPD, Depression, DM, HTN, PE, UTI'S Past Medical History (Other): current hiatal hernia, thrombocytopenia Surgical History: Appendectomy, Hysterectomy CLINICAL REVIEW SPECIALIST History: No Pertinent CLINICAL REVIEW SPECIALIST History Family History Family History: Reviewed,noncontributory to illness, No family hx of Cancer Social History Smoker: Non-Smoker Alcohol: Denies ETOH Use Drugs: Denies Drug Use Lives In: [facility] Other bed-ridden Constitutional: denies: chills, diaphoresis, fatigue, fever, malaise, sweats, weakness, others EENTM: denies: blurred vision, double vision, ear bleeding, ear discharge, ear drainage, ear pain, ear ringing, eye pain, eye redness, hearing loss, mouth pain, mouth swelling, nasal discharge, nose bleeding, nose congestion, nose pain, photophobia, tearing, throat pain, throat swelling, voice changes, others Respiratory: denies: cough, hemoptysis, orthopnea, SOB at rest, shortness of breath, SOB with excertion, stridor, wheezing, others Cardiovascular: denies: chest pain, dizzy spells, diaphoresis, Dyspnea on exertion, edema, irregular heart beat, left arm pain, lightheadedness, palpitations, PND, syncope, others Gastrointestinal: reports: constipated; denies: abdomen distended, abdominal pain, blood streaked bowels, diarrhea, dysphagia, difficulty swallowing, hematemesis, melena, nausea, poor appetite, poor fluid intake, rectal bleeding, rectal pain, vomiting, others Genitourinary: denies: abnormal vagina bleeding, burning, dyspareunia, dysuria, flank pain, frequency, hematuria, incontinence, pain, , vagina discharge, urgency, others Neurological: denies: dizziness, fainting, headache, left sided numbness, left sided weakness, numbness, paresthesia, pre-existing deficit, right sided numbness, right sided weakness, seizure, speech problems, tingling, tremors, weakness, others Musculoskeletal: denies: back pain, gout, joint pain, joint swelling, muscle pain, muscle stiffness, neck pain, others Integumetry: denies: bruises, change in color, change in hair/nails, dryness, laceration, lesions, lumps, rash, wounds, others Allergic/Immunocompromised: denies: Difficulty Healing, Frequent Infections, Hives, Itching, others Hematologic/Lymphatic: denies: anemia, blood clots, easy bleeding, easy bruising, swollen glands, others Endocrine: denies: excessive hunger, excessive sweating, excessive thirst, excessive urination, flushing, intolerance to cold, intolerance to heat, unexplained weight gain, unexplained weight loss, others Psychiatric: denies: anxiety, bipolar disorder, depression, hopeless, panic disorder, schizophrenia, sleepless, suicidal, others All Other Systems: Reviewed and Negative Physical Exam General Appearance: No Apparent Distress, Thin, Other (cachetic) HEENT: Normal ENT Inspection, Pharynx Normal, TMs Normal Neck: Full Range of Motion, Non-Tender, Normal, Normal Inspection Respiratory: Chest Non-Tender, Lungs Clear, No Accessory Muscle Use, No Respiratory Distress, Normal Breath Sounds Cardiovascular: No Edema, No JVD, No Murmur, No Gallop, Normal Peripheral Pulses, Regular Rate/Rhythm Breast Exam: Deferred Gastrointestinal: No Organomegaly, Non Tender, No Pulsatile Mass, Normal Bowel Sounds, Soft Genitalia: Deferred Pelvic: Deferred Rectal: Deferred Extremities: No calf tenderness, Normal capillary refill, Normal inspection, Normal range of motion, Non-tender, No pedal edema Musculoskeletal : Apperance: Normal Neurologic: Alert, envelope maker II-XII nml as Tested, No Motor Deficits, Normal Affect, Normal Mood, No Sensory Deficits Cerebellar Function: Normal Reflexes: Normal Skin: Dry, Normal Color, Warm Lymphatic: No Adenopathy Was a procedure done? Was a procedure done?: No Differential Dx Considerations may include: constipation, SBO, fecal impaction, fiber-deficient diet X-Ray, Labs, Meds, VS Vital Signs Date Time Temp Pulse Resp B/P (MAP) Pulse Ox O2 Delivery O2 Flow Rate FiO2 06/25/24 00:00 91 24 172/85 (114) 98 06/24/24 23:05 Nasal Cannula* 2 28 06/24/24 23:05 98.0 91 16 168/88 (114) 98 98.0 06/24/24 22:35 97.5 86 22 168/89 (115) 94 Time of 1ST Reevaluation: 23:15 Reevaluation 1ST: Unchanged Patient Education/Counseling: Diagnosis, Treatment Family Education/Counseling: No Family Present Departure 1 Departure Time of Disposition: 01:26 (Patient with some constipation. We will discharge patient home with a bowel regimen.) Impression: Primary Impression: Constipation Qualified Codes: K59.04 - Chronic idiopathic constipation Disposition: 03 CARE HOME FACILITY Condition: Stable Additional Instructions: You are constipated. It is important to stay well rested and well hydrated. You should eat a high-fiber diet. Your prescribed MiraLax. This will help you have bowel movements. Please take as directed. If your symptoms worsen or you have any other concerns please return to the emergency room. e-Prescriptions Polyethylene Glycol 3350 (Miralax Mix-in [place]) 17 Gm Pow 17 GM PO DAILY for 14 Days, #14 POW Prov: JUNI FOY MD 06/25/24 Discharged With: Self Critical Care Note Critical Care Time?: No Stability Stability form required: No Heart Score Heart Score: Heart Score Response (Comments) Value History N/A 0 EKG N/A 0 Age N/A 0 Risk Factors N/A 0 Troponin N/A 0 Total 0 I personally scribed for JUNI FOY MD ([email or web address]) on 06/24/24 at 23:19. Electronically submitted by Harvinder Edouard ([email or web address]). JUNI FOY MD Jun 24, 2024 23:19
--- NOTE | 2024-06-25 00:44 | DVH ---
INDICATION: Constipation.. TECHNIQUE: Multiple views of the abdomen were obtained. COMPARISON: None Findings/ IMPRESSION: Moderate fecal retention in the rectum and descending colon. Correlate for possible constipation and/ or fecal impaction. Questionable small right-sided pleural effusion. No acute osseous abnormalities.
[2024-06-25] MEDS ORDERED: POLY17PO5 PO (01:29)
[2024-06-25] MEDS: POLYETHYLENE GLYCOL 17 GM PWDR PO ONE (02:17)
[2024-06-25 07:19] VITALS: PULSE 83; RESP 19; O2SAT 97
[2024-06-25 08:00] VITALS: TEMP 98.3
[2024-06-25 11:00] VITALS: BP 126/63; PULSE 85; RESP 20; O2SAT 94
== END 2024-06-25 01:30 | disposition home or self-care (01) ==
LOC: ER 22:28 → EDBD 22:28 → ER 06-25 01:30
DX: K59.00 Constipation, unspecified (principal); I12.9 Hypertensive chronic kidney disease with stage 1 through stage 4 chronic kidney disease, or unspecified chronic kidney disease; E11.22 Type 2 diabetes mellitus with diabetic chronic kidney disease; N18.30 Chronic kidney disease, stage 3 unspecified; J44.9 Chronic obstructive pulmonary disease, unspecified; Z88.0 Allergy status to penicillin; Z88.8 Allergy status to other drugs, medicaments and biological substances; Z79.899 Other long term (current) drug therapy; Z90.49 Acquired absence of other specified parts of digestive tract; Z90.710 Acquired absence of both cervix and uterus
CPT/HCPCS: 74018